=== PATIENT | male | born 1985 | race Caucasian/White ===

== ENCOUNTER 2022-02-23 17:16 | Emergency (ER) | payer OTHER ==
[2022-02-23] MEDS: Ketorolac 30 MG/ML SDV IM ONE (18:53)
== END 2022-02-23 19:23 | disposition home or self-care (01) ==
LOC: VM.ED 17:16
DX: S52.122A Displaced fracture of head of left radius, initial encounter for closed fracture (principal); W18.30XA Fall on same level, unspecified, initial encounter; Y99.0 Civilian activity done for income or pay
CPT/HCPCS: 29105; 73070-LT; 73090-LT; 96372; 99283-25; J1885